=== PATIENT | male | born 1970 | race Caucasian/White ===

== ENCOUNTER 2020-07-06 11:10 | Emergency (ER) | payer OTHER ==
[2020-07-06 12:17] LABS: HEMOGLOBIN 16.7 gm/dl (14.0-17.5); RED BLOOD COUNT 5.54 M/UL (4.20-5.50); WHITE BLOOD COUNT 10.2 K/UL (4.5-11.0)
[2020-07-06 12:41] LABS: BUN/CREATININE RATIO 15 (0-10)
[2020-07-06] MEDS ORDERED: ZOFRAN4 MG PO (13:38)
[2020-07-06] MEDS ORDERED: PROTONIX40 MG PO (13:38)
== END 2020-07-06 13:49 | disposition home or self-care (01) ==
LOC: ER1 11:10
PROVIDERS: Physician Assistant
DX: R10.13 Epigastric pain (principal); F17.210 Nicotine dependence, cigarettes, uncomplicated; Z88.5 Allergy status to narcotic agent; Z79.899 Other long term (current) drug therapy; K21.9 Gastro-esophageal reflux disease without esophagitis
CPT/HCPCS: 80053; 82150; 82550; 82553; 83690; 83874; 84484; 85025; 93005; 96374; 99284; C9113

== ENCOUNTER 2020-07-08 10:41 | Emergency (ER) | payer OTHER ==
[~2020-07-08 10:41] MED LIST: PROTONIX40 MG PO; ZOFRAN4 MG PO
[2020-07-08 11:21] LABS: HEMOGLOBIN 15.6 gm/dl (14.0-17.5); RED BLOOD COUNT 5.08 M/UL (4.20-5.50)
[2020-07-08 11:27] LABS: WHITE BLOOD COUNT 6.9 K/UL (4.5-11.0)
[2020-07-08 11:44] LABS: BUN/CREATININE RATIO 16 (0-10)
== END 2020-07-08 13:33 | disposition home or self-care (01) ==
LOC: ER1 10:41
PROVIDERS: Family Medicine
DX: K21.9 Gastro-esophageal reflux disease without esophagitis (principal); R07.89 Other chest pain; R06.00 Dyspnea, unspecified; H92.01 Otalgia, right ear; J34.89 Other specified disorders of nose and nasal sinuses; F17.200 Nicotine dependence, unspecified, uncomplicated
CPT/HCPCS: 71045; 80053; 82550; 82553; 83605; 83874; 84484; 85025; 93005; 99285